=== PATIENT | female | born 1930 | race Caucasian/White ===

== ENCOUNTER 2017-11-09 19:56 | Inpatient (IN) | payer MEDICARE ==
[~2017-11-09] VITALS: Ht 152.4 cm; Wt 54.1 kg
[~2017-11-09 19:56] MED LIST: ACET325T21 PO; AMOX1TAB10 PO; ASPI-630 PO; BETA10TA2; BUTA-14; CHOL10003 PO; CYCL1DRO OU; DIPH1TAB; DONE10TA14; DONE10TA7; FAMO-63 PO; FENT1PAT15 TP; FOLI1TAB16; GABA-586; HYDR453.3 TP; LACT1CAP24 PO; LEVO88CA PO; LISI2.5T; LORA0.5T96 PO; MAG30ORA2 PO; MAGN2400 PO; MECL25TA3; MELA3TAB2 PO; METH57CR7 TP; NAPR500T4; NYST1000 PO; OXYC-323 PO; PANT40TA3 PO; QUET25TA5 PO; RANI150T2; RISP0.2519 PO; SERT50TA PO; SIMV40TA3 PO; TOBR3.5O2 OU; TRAM50TA; ZOLP10TA
[2017-11-09] MEDS ORDERED: IV NORMAL SALINE 1,000ML 1,000 ML IV SCH ×2 (20:30→22:30)
[2017-11-09] MEDS ORDERED: ONDANSETRON PF 4 MG/2 ML VIAL. IV ONE (20:45)
[2017-11-09 20:58] LABS: BASO % 0 % (0-3); EOS # 0.2 x10^3/uL (0.0-0.7); EOS % 1 % (0-3); HEMATOCRIT 44.5 % (36.0-47.0); HEMOGLOBIN 14.9 g/dL (12.0-15.5); LYMPH # 0.3 x10^3/uL (1.0-4.8); LYMPH % 2 % (24-48); MEAN CORPUSCULAR HEMOGLOBIN 31 pg (25-35); MEAN CORPUSCULAR HGB CONC 34 g/dL (31-37); MEAN CORPUSCULAR VOLUME 93 fL (79-100); MONO # 0.4 x10^3/uL (0.0-1.1); MONO % 2 % (0-9); NEUT # 15.9 x10^3uL (1.8-7.7); NEUT % 95 % (31-73); PLATELET COUNT 286 x10^3/uL (140-400); RED BLOOD COUNT 4.77 x10^6/uL (3.50-5.40); RED CELL DISTRIBUTION WIDTH 14.2 % (11.5-14.5); WHITE BLOOD COUNT 16.8 x10^3/uL (4.0-11.0)
[2017-11-09 21:07] LABS: ALBUMIN/GLOBULIN RATIO 0.9 (1.0-1.7); CALCIUM 9.8 mg/dL (8.5-10.1); CREATININE 1.1 mg/dL (0.6-1.0); GFR 46.9; POTASSIUM 4.2 mmol/L (3.5-5.1); TOTAL BILIRUBIN 0.3 mg/dL (0.2-1.0); TOTAL PROTEIN 8.4 g/dL (6.4-8.2)
[2017-11-09] MEDS ORDERED: cefTRIAXone SODIUM 1 GM VIAL IV ONE (21:24)
[2017-11-09] MEDS ORDERED: AZITHROMYCIN 500 MG VIAL. IV ONE (21:24)
[2017-11-09] MEDS ORDERED: IV NORMAL SALINE 250ML 250 ML ONE (21:24)
[2017-11-09] MEDS ORDERED: IV NORMAL SALINE 50ML 50 ML ONE (21:24)
[2017-11-09] MEDS ORDERED: AZITHROMYCIN 500 MG in IV NORMAL SALINE 250ML 250 ML IV ONE (21:30)
[2017-11-09 22:01] LABS: % BASOS 1 % (0-3); % LYMPHS 1 % (24-48); % MONOS 3 % (0-10); % SEGS 95 % (35-66)
[2017-11-09 22:03] LABS: OVALOCYTES OCC; PLT ESTIMATE ADEQUATE (ADEQUATE); POLYCHROMASIA SLIGHT; SCHISTOCYTES OCC; STOMATOCYTES OCC
--- NOTE | 2017-11-09 22:14 | PHYS DOC ---
General Chief Complaint: NAUSEA/VOMITING/DIARRHEA Stated Complaint: NAUSEA Time Seen by MD: 20:12 Source: patient, EMS, halfway records Exam Limitations: clinical condition Problems: History of Present Illness Initial Comments Patient is an 87-year-old female sent to the emergency department from [facility] via EMS for vomiting and diarrhea. EMS reports that halfway staff reported the patient has had several days of vomiting and diarrhea and there was now concern for the possibility of C. difficile. The patient has also had a progressively worsening cough with green sputum no measured fevers. Patient has history of CVA with hemiplegia sequela as well as dementia and although pleasant and cooperative is a poor historian. DNR order is sent with the patient. The patient is not actively vomiting on arrival. ED vitals: 97.8, 121, 22, 143/76, 99% room air Patient has dementia and is unable to sign. Timing/Duration: getting worse, changing over time, other Severity: severe Modifying Factors: worse with movement, improves with rest Associated Symptoms: cough, nausea/vomiting Allergies: Coded Allergies: albuterol (Verified Allergy, Intermediate, 11/09/17) alprazolam (Verified Allergy, Intermediate, 11/09/17) doxycycline (Verified Allergy, Intermediate, 11/09/17) Past Medical History Medical History: heart disease, hypertension, other (Alzheimer's dementia, anxiety disorder, generalized weakness, hypothyroidism, difficulty walking, and pulse disorder, hyperlipidemia, GERD, CVA with hemiplegia, anemia, edema, constipation, depression, coronary artery disease, left hip fracture, pseudo- bulbar affect, chronic leg pain, unspecified psychosis, polyneuropathy, chronic left foot ulcers) Surgical History: angioplasty, coronary bypass surgery, other (ORIF left hip) Social History Smoker: non-smoker Alcohol: none Drugs: none Review of Systems All Other Systems: Reviewed and Negative (history of dementia see history of present illness) Physical Exam General Appearance: no apparent distress (dry cough on arrival which persisted approximately 30 minutes and then appeared to resolve for the most part), thin Ear, Nose, Throat: hearing grossly normal, normal ENT inspection, normal pharynx Neck: non-tender, supple Respiratory: no respiratory distress, decreased breath sounds, other (course breath sounds bilaterally) Cardiovascular: normal peripheral pulses, tachycardia Gastrointestinal: normal bowel sounds, soft (mildly distended, generalized tenderness without rebound guarding or mass negative Long negative McBurney) Extremities: non-tender, normal inspection Neurologic/Psychiatric: alert, other (disoriented hemiplegia noted) Skin: pallor (with poor skin turgor) Orders, Labs, Meds EKG: Sinus tachycardia 125 bpm, repolarization abnormality with T contour abnormality no ST segment elevation interpreted by me. Acute abdominal series: Right basilar infiltrate noted, postoperative changes, nonspecific nonobstructive bowel gas pattern, moderate to severe degenerative changes at the lumbar spine interpreted by me. PATIENT: MIRANDA MESSINA ACCOUNT: [id number] : 1930 LOCATION: ER AGE: 87 SEX: F EXAM STATUS: REG ER ORD. PHYSICIAN: ADRIANNA GR DO REASON: cough, tachycardia PROCEDURE: CT ANGIOGRAPHY CHEST CTA scan of the Chest with Contrast (Pulmonary Embolism protocol) 11/09/2017 Clinical History: Shortness of breath. Cough. Tachycardia. Technique: After the intravenous administration of 60 cc of Omnipaque 300, contiguous, 0.625 mm axial sections were obtained through the chest. 2 mm axial and 3D MIP coronal and sagittal reconstructed images were obtained. One or more of the following individualized dose reduction techniques were utilized for this study: 1. Automated exposure control. 2. Adjustment of the mA and/or kV according to patient size. 3. Use of iterative reconstruction technique. Findings: No filling defect is seen within the major branches of either pulmonary artery. There is no CT evidence of pulmonary embolism. The heart is mildly enlarged. The patient is post CABG procedure. Moderate to severe atheromatous/atherosclerotic plaque formation is seen involving the thoracic aorta and its branches. The thoracic aorta is tortuous but tapers normally. Dependent atelectasis and or infiltrate is seen involving both lower lobes, right greater than left. Areas of scarring are seen scattered throughout both lungs. Patchy areas of groundglass attenuation are seen throughout both lungs. No pneumothorax or pleural effusion is seen. Small partially calcified gallstones are seen within the dependent portions of the gallbladder. Impression: There is no CT evidence of pulmonary embolism. Electronically signed by: Darius Louis MD (11/10/2017 12:09 AM) [facility] DICTATED AND SIGNED BY: DARIUS LOUIS MD DATE: 11/10/17 0004 CC: MICHAEL HURD MD; ADRIANNA GR DO ~ Impressions: Sepsis Bibasilar pneumonia Vomiting and diarrhea Hypovolemia Elevated d-dimer Inguinal and left lower extremity skin breakdown Cholelithiasis without cholecystitis 0035: I discussed the patient with javascript front end developer hospitalist Dr. Hurd who is already familiar with the patient. He accepts inpatient ICU admission to continue Rocephin and Zithromax as well as other treatments and evaluate lower extremities for DVT. ED course: 87-year-old female sent to the emergency department from [facility] for productive cough, nausea and vomiting. Patient found to be tachycardic and remained so despite 2 L normal saline IV boluses, no vomiting or diarrhea noted during the patient's extended time in the emergency department. Chest x-ray and CTA chest indicative of pneumonia, Rocephin and Zithromax given intravenously as well as Flagyl for suspected C. difficile colitis. Patient has not yet produced a stool specimen, blood cultures are also pending. Lactic acid improved with hydration from 2.1-1.[address] Hurd accepts inpatient ICU admission to continue current treatments and for inpatient lower extremity Dopplers and wound care consultations as well as Lovenox DVT prophylaxis. Departure Disposition: ADMITTED INPATIENT Condition: STABLE Additional Instructions: Inpatient ICU admission Dr. Hurd is accepting ADRIANNA GR DO Nov 09, 2017 22:13
[2017-11-09 22:48] LABS: AMORPHOUS SEDIMENT,UR PRESENT /HPF; BACTERIA,URINE 0 /HPF (0-FEW); BILIRUBIN,URINE NEG (NEG); CLARITY,URINE CLEAR; COLOR,URINE YELLOW; GLUCOSE,URINE NEG (NEG); NITRITE,URINE NEG (NEG); RBC,URINE RARE /HPF (0-2); SQUAMOUS EPITHELIAL CELL,UR OCC /LPF; UROBILINOGEN,URINE 0.2 mg/dL (0.2 mg/dL); WBC,URINE OCC /HPF (0-4)
[2017-11-09 22:49] LABS: HYALINE CASTS, URINE OCC /HPF
--- NOTE | 2017-11-09 22:59 | EKG ---
[address] [address] Test Date: 2017-11-09 Test Time: 21:54:03 Pat Name: MIRANDA MESSINA Department: Room: Gender: F Behavioral Health Worker: PATRICIA : 1930 Requested By: ADRIANNA GR Order Number: [id number] Reading MD: Gustabo Frye MD Measurements Intervals [place] Rate: 125 P: 33 MO: 164 QRS: 17 QRSD: 72 T: 25 QT: 290 QTc: 420 Interpretive Statements SINUS TACHYCARDIA RVH WITH REPOLARIZATION ABNORMALITY NON-SPECIFIC ST/T CHANGES Electronically Signed On 11-17-2017 12:03:49 C UNIX DEVELOPER by Gustabo Frye MD
[2017-11-09] MEDS ORDERED: CONTRAST GIVEN MC PRN (23:00)
[2017-11-09] MEDS ORDERED: IOHEXOL 300 MG/ML 75 ML VIAL. IV ONE (23:30)
[2017-11-10] VITALS (15 sets, daily range): BP systolic 85–136; BP diastolic 44–74
[2017-11-10] MEDS: IV NORMAL SALINE 1,000ML 1,000 ML IV SCH ×4 (00:01→20:19)
--- NOTE | 2017-11-10 00:12 | RAD ---
CTA scan of the Chest with Contrast (Pulmonary Embolism protocol) 11/09/2017 Clinical History: Shortness of breath. Cough. Tachycardia. Technique: After the intravenous administration of 60 cc of Omnipaque 300, contiguous, 0.625 mm axial sections were obtained through the chest. 2 mm axial and 3D MIP coronal and sagittal reconstructed images were obtained. One or more of the following individualized dose reduction techniques were utilized for this study: 1. Automated exposure control. 2. Adjustment of the mA and/or kV according to patient size. 3. Use of iterative reconstruction technique. Findings: No filling defect is seen within the major branches of either pulmonary artery. There is no CT evidence of pulmonary embolism. The heart is mildly enlarged. The patient is post CABG procedure. Moderate to severe atheromatous/atherosclerotic plaque formation is seen involving the thoracic aorta and its branches. The thoracic aorta is tortuous but tapers normally. Dependent atelectasis and or infiltrate is seen involving both lower lobes, right greater than left. Areas of scarring are seen scattered throughout both lungs. Patchy areas of groundglass attenuation are seen throughout both lungs. No pneumothorax or pleural effusion is seen. Small partially calcified gallstones are seen within the dependent portions of the gallbladder. Impression: There is no CT evidence of pulmonary embolism. Electronically signed by: aDrius Louis MD (11/10/2017 12:09 AM) [place] [id number]
[2017-11-10] MEDS ORDERED: ACETAMINOPHEN 325 MG TABLET PO PRN (00:45)
[2017-11-10] MEDS ORDERED: ONDANSETRON PF 4 MG/2 ML VIAL. IV PRN (00:45)
[2017-11-10] MEDS ORDERED: ACETAMINOPHEN 325 MG SUPP.RECT ONE (01:37)
[2017-11-10] MEDS: FAMOTIDINE 20 MG/2 ML VIAL IVP SCH (08:41)
[2017-11-10] MEDS: ENOXAPARIN 30 MG/0.3 ML DISP.SYRIN. SQ SCH (08:41)
--- NOTE | 2017-11-10 09:18 | RAD ---
Indication: Nausea and vomiting. C. difficile. Tachycardia. Technique: Abdominal series with AP chest radiograph contains 3 images. No comparison is available. Findings: There is minimal opacity in the left lung base. Density in the right midlung field may be extrinsic to the patient. Heart is not enlarged. There is atheromatous disease in the thoracic aorta. Median sternotomy wires are noted. The second most superior wire is fractured, similar to prior. There is no free air. There is no dilated small bowel loop or air-fluid level. There are degenerative changes in the spine. There is atheromatous disease in the abdominal aorta. There are postsurgical changes in the left hip. There is increased density projecting over the sacrum on the left. This could be superimposed iliac artery vascular calcification. Chronic sacral insufficiency fracture also is a consideration. Impression: 1. Nonobstructive bowel gas pattern. 2. Left basilar opacity could represent atelectasis, scarring, or less likely developing infiltrate.
[2017-11-10] MEDS: LEVOTHYROXINE 88 MCG TABLET PO SCH (11:00)
[2017-11-10] MEDS: SERTRALINE 50 MG TABLET. PO SCH (11:30)
[2017-11-10] MEDS: fentaNYL 25MCG/HR 1 PATCH PATCH TD SCH (11:30)
--- NOTE | 2017-11-10 15:10 | HP ---
ADMIT DATE: 11/10/2017 REASON FOR ADMISSION: Nausea, vomiting, diarrhea admission. HISTORY OF PRESENT ILLNESS: This is an 87-year-old female who came from [facility] via EMS for vomiting and diarrhea. According to the records, the [facility] staff reported, the patient has had several days of vomiting and diarrhea. They were concerned about the possibility of C. difficile, also has been coughing with green sputum. No report of fever. PAST MEDICAL HISTORY: CVA, apparent wound on her coccyx, dementia, coronary artery disease, hypertension, weakness, hypothyroidism, reflux, hyperlipidemia, vascular dementia, [place] in the past, actually chronic diarrhea is listed as a diagnosis in 04/23 history and physical. Right middle cerebral artery infarct, chronic kidney disease, multiple admissions for cellulitis of the left leg and [facility] for dementia with behavior disturbance. She had an admission on 11/29/2016, with an infection of her left foot. FAMILY HISTORY: Positive for CVA, coronary artery disease and cancer. ALLERGIES: None. MEDICATIONS: Reviewed. REVIEW OF SYSTEMS: The patient just feels weak, but cannot really verbalize what was bothering her. SOCIAL HISTORY: Resides at [facility]. Smoking history is not known. PAST SURGICAL HISTORY: Left total knee arthroplasty, coronary artery bypass, coronary angioplasty with stent deployment. ALLERGIES: ALBUTEROL, ALPRAZOLAM and DOXYCYCLINE. OBJECTIVE: VITAL SIGNS: Blood pressure is 85/57 with a MAP of 66, pulse 95, respirations 18, pulse ox 95% on room air. GENERAL: Color is pale. She is sleepy. HEENT: Her tongue is dry. NECK: Supple. There is no JVD. LUNGS: Clear. CARDIOVASCULAR: Regular rhythm and rate with a 2-3/6 systolic murmur. ABDOMEN: Soft. Bladder seems is a little bit full, nontender. EXTREMITIES: Left leg, she has a chronic dermatitis on that foot and what appears to be a wound on the left heel also a large coccyx wound, probably on stage 1. LABORATORY DATA: White blood cell count 16.8%, neutrophils 95%. Chemistry: Her lactic acid initially was 2.1, now it is 1.8. Troponin slight bump from 0.017 to 0.043. BUN 25, creatinine of 1.1. Albumin is 4. D-dimer 1.20. Urinalysis is clear. Chest CT shows enlarged heart, moderate to severe atherosclerosis, bilateral lower infiltrates or atelectasis, right greater than left. No PE. ASSESSMENT: 1. Hypotension, severe. 2. Severe dehydration. 3. Acute kidney injury. 4. Frail elderly. 5. Leukocytosis. 6. Bilateral lower lobe pneumonia. 7. Elevated D-dimer, negative pulmonary embolism. 8. Alzheimer's dementia. 9. History of hypertension, but is hypotensive. 10. Hypothyroidism. 11. Low vitamin D. 12. Left heel wound. 13. Buttock wound. PLAN: Wound consult. MATTHEW MARQUEZ DO DR: ENOCH/lana JOB#: [id number] / [id number]
[2017-11-10] MEDS: ACETAMINOPHEN 325 MG TABLET PO SCH ×2 (15:16→20:20)
--- NOTE | 2017-11-10 16:11 | RAD ---
Bilateral lower extremity venous ultrasound, 11/10/2017: History: Elevated d-dimer Duplex evaluation of the deep veins in the lower extremities was performed including grayscale, color-flow and spectral Doppler analysis. The femoral and popliteal veins demonstrate normal compressibility and normal responses to distal augmentation maneuvers. Color imaging of those vessels shows no evidence of intraluminal clot. The visualized deep veins in both calves are patent. IMPRESSION: There is no sonographic evidence of deep vein thrombosis in either lower extremity.
[2017-11-10] MEDS: MELATONIN 3 MG TABLET PO PRN (20:19)
[2017-11-10] MEDS: cycloSPORINE 0.05% OPTH 1 DROP DROPERETTE OU SCH (20:19)
[2017-11-10] MEDS: LACTOBACILLUS RHAMNOSUS GG 1 CAPSULE. PO SCH (20:19)
[2017-11-10] MEDS: AZITHROMYCIN 500 MG in IV NORMAL SALINE 250ML 250 ML IV SCH (22:22)
[2017-11-11] VITALS (13 sets, daily range): BP systolic 98–148; BP diastolic 55–93
[2017-11-11 01:15] LABS: FECAL OB PT NEGATIVE (NEG)
[2017-11-11] MEDS: LEVOTHYROXINE 88 MCG TABLET PO SCH (05:06)
[2017-11-11 06:14] LABS: BASO % 0 % (0-3); EOS # 0.2 x10^3/uL (0.0-0.7); EOS % 3 % (0-3); HEMATOCRIT 32.6 % (36.0-47.0); LYMPH # 1.7 x10^3/uL (1.0-4.8); LYMPH % 23 % (24-48); MEAN CORPUSCULAR HEMOGLOBIN 32 pg (25-35); MEAN CORPUSCULAR HGB CONC 34 g/dL (31-37); MEAN CORPUSCULAR VOLUME 94 fL (79-100); MONO # 0.8 x10^3/uL (0.0-1.1); MONO % 10 % (0-9); NEUT # 4.9 x10^3uL (1.8-7.7); NEUT % 64 % (31-73); PLATELET COUNT 192 x10^3/uL (140-400); RED BLOOD COUNT 3.46 x10^6/uL (3.50-5.40); RED CELL DISTRIBUTION WIDTH 14.5 % (11.5-14.5); WHITE BLOOD COUNT 7.6 x10^3/uL (4.0-11.0)
[2017-11-11 06:31] LABS: ALBUMIN 2.4 g/dL (3.4-5.0); ALBUMIN/GLOBULIN RATIO 0.7 (1.0-1.7); CALCIUM 7.8 mg/dL (8.5-10.1); CREATININE 0.9 mg/dL (0.6-1.0); GFR 59.1; MAGNESIUM 1.6 mg/dL (1.8-2.4); POTASSIUM 3.4 mmol/L (3.5-5.1); TOTAL BILIRUBIN 0.1 mg/dL (0.2-1.0); TOTAL PROTEIN 5.8 g/dL (6.4-8.2)
[2017-11-11] MEDS ORDERED: MAGNESIUM SULFATE 2GM 50 ML IV ONE (08:00)
[2017-11-11] MEDS ORDERED: POTASSIUM CHLORIDE 20 MEQ TABLET.ER. PO ONE (08:15)
[2017-11-11] MEDS: ASPIRIN 81 MG TAB.CHEW PO SCH (08:26)
[2017-11-11] MEDS: LACTOBACILLUS RHAMNOSUS GG 1 CAPSULE. PO SCH ×2 (08:26→20:10)
[2017-11-11] MEDS: cycloSPORINE 0.05% OPTH 1 DROP DROPERETTE OU SCH ×2 (08:26→20:10)
[2017-11-11] MEDS: CHOLECALCIFEROL (VITAMIN D3) 1,000 UNIT TABLET PO SCH (08:26)
[2017-11-11] MEDS: ENOXAPARIN 30 MG/0.3 ML DISP.SYRIN. SQ SCH (08:26)
[2017-11-11] MEDS: ACETAMINOPHEN 325 MG TABLET PO SCH ×3 (08:26→20:10)
[2017-11-11] MEDS: FAMOTIDINE 20 MG/2 ML VIAL IVP SCH (08:27)
[2017-11-11] MEDS: SERTRALINE 50 MG TABLET. PO SCH (08:27)
[2017-11-11] MEDS: HYDROCORTISONE 2.5% TOPICAL CREAM 30GM TUBE. TP SCH (08:28)
[2017-11-11] MEDS: MELATONIN 3 MG TABLET PO PRN (20:10)
[2017-11-11] MEDS: AZITHROMYCIN 500 MG in IV NORMAL SALINE 250ML 250 ML IV SCH (20:10)
[2017-11-12] VITALS (10 sets, daily range): BP systolic 106–172; BP diastolic 57–87
--- NOTE | 2017-11-12 03:54 | PN ---
DATE: 11/11/2017 CURRENT PROBLEMS: 1. Hypotension, which is improving. 2. Severe dehydration, improved. 3. Acute kidney injury, improved. 4. Frail elderly. 5. Bilateral lower lobe pneumonia with sepsis. 6. Hypomagnesemia. 7. Hypokalemia. 8. MRSA positive. 9. Neurocognitive impairment. 10. Hypothyroidism. 11. Vitamin D deficiency. 12. Left heel wound. 13. Buttock wound. NARRATIVE: The patient has been seen by the wound nurse and treated. She is somewhat agitated this morning and having trouble taking her medications. She just basically does not want to take them. She appears to be having a little bit of issue with choking and will need a speech eval. OBJECTIVE: VITAL SIGNS: Blood pressure 113/64, pulse 76, respirations 18, pulse ox 94% on room air. GENERAL: Her color is pale. LUNGS: With crackles in the bases. NECK: Supple. CARDIOVASCULAR: Regular rhythm and rate. ABDOMEN: Soft, nontender. EXTREMITIES: Left discoloration of the feet. Left foot has some petechiae, ecchymosis, which is not opened. Heel was covered. Buttock dermatitis not looked at today. Blood culture, no growth after 1 day. PLAN: Continue current plans, PT and OT. MATTHEW MARQUEZ DO DR: ENOCH/lana JOB#: [id number] / [id number]
[2017-11-12] MEDS: LEVOTHYROXINE 88 MCG TABLET PO SCH (06:01)
[2017-11-12 08:23] LABS: HEMATOCRIT 37.9 % (36.0-47.0); HEMOGLOBIN 12.9 g/dL (12.0-15.5); RED BLOOD COUNT 4.08 x10^6/uL (3.50-5.40); RED CELL DISTRIBUTION WIDTH 14.2 % (11.5-14.5); WHITE BLOOD COUNT 10.9 x10^3/uL (4.0-11.0)
[2017-11-12 08:47] LABS: ALBUMIN 3.1 g/dL (3.4-5.0); ALBUMIN/GLOBULIN RATIO 0.8 (1.0-1.7); CALCIUM 8.8 mg/dL (8.5-10.1); CREATININE 0.8 mg/dL (0.6-1.0); GFR 67.7; MAGNESIUM 1.8 mg/dL (1.8-2.4); POTASSIUM 3.3 mmol/L (3.5-5.1); TOTAL BILIRUBIN 0.2 mg/dL (0.2-1.0); TOTAL PROTEIN 7.2 g/dL (6.4-8.2)
[2017-11-12] MEDS: FAMOTIDINE 20 MG/2 ML VIAL IVP SCH (08:57)
[2017-11-12] MEDS: HYDROCORTISONE 2.5% TOPICAL CREAM 30GM TUBE. TP SCH (08:58)
[2017-11-12] MEDS: cycloSPORINE 0.05% OPTH 1 DROP DROPERETTE OU SCH ×2 (08:58→21:23)
[2017-11-12] MEDS: ENOXAPARIN 30 MG/0.3 ML DISP.SYRIN. SQ SCH (08:58)
[2017-11-12] MEDS: LACTOBACILLUS RHAMNOSUS GG 1 CAPSULE. PO SCH ×3 (08:59→21:22)
[2017-11-12] MEDS: CHOLECALCIFEROL (VITAMIN D3) 1,000 UNIT TABLET PO SCH (08:59)
[2017-11-12] MEDS: SERTRALINE 50 MG TABLET. PO SCH (08:59)
[2017-11-12] MEDS: ASPIRIN 81 MG TAB.CHEW PO SCH (08:59)
[2017-11-12] MEDS: ACETAMINOPHEN 325 MG TABLET PO SCH ×4 (08:59→21:22)
[2017-11-12] MEDS ORDERED: IPRATRPIUM/ALBUTEROL 0.5/2.5MG 3 ML NEBU. ONE (11:20)
[2017-11-12] MEDS ORDERED: IPRATROPIUM BROMIDE 0.5 MG/2.5 ML NEBU. ONE (11:23)
[2017-11-12] MEDS: IPRATROPIUM BROMIDE 0.5 MG/2.5 ML NEBU. NEB SCH ×2 (12:00→21:38)
[2017-11-12] MEDS: AZITHROMYCIN 500 MG in IV NORMAL SALINE 250ML 250 ML IV SCH (21:23)
--- NOTE | 2017-11-13 02:54 | PN ---
DATE: PROBLEMS: 1. Hypotension, resolved. 2. Dehydration, resolved. 3. Acute kidney injury, resolved. 4. Frail elderly, resolved. 5. Bilateral lower lobe pneumonia with sepsis. 6. Hypomagnesemia. 7. Hypokalemia. 8. Methicillin-resistant Staphylococcus aureus positive. 9. Neurocognitive impairment. 10. Hypothyroidism. 11. Vitamin D deficiency. 12. Left heel wound. 13. Buttock dermatitis. SUBJECTIVE: The patient is doing much better. She will need one more night to go back skilled. She did not sleep very much last night, but was "very busy." She has a little risk according to Speech of aspiration. OBJECTIVE: VITAL SIGNS: Blood pressure 106/68, pulse 88, respirations 16, pulse ox 95% on room air. Color is pale. She is alert, mildly agitated. LUNGS: With a few crackles. CARDIOVASCULAR: Regular rhythm and rate, slightly irregular. ABDOMEN: Soft. Bladder was a little bit full. EXTREMITIES: Without edema. PLAN: Breathing treatment x 1. Switch to p.o. antibiotics. Plan for discharge. MATTHEW MARQUEZ DO DR: ENOCH/lana JOB#: [id number] / [id number]
[2017-11-13] MEDS: LEVOTHYROXINE 88 MCG TABLET PO SCH (05:42)
[2017-11-13 06:00] VITALS: BP 154/75
[2017-11-13 06:05] LABS: BASO # 0.1 x10^3/uL (0.0-0.2); BASO % 1 % (0-3); EOS # 0.4 x10^3/uL (0.0-0.7); EOS % 4 % (0-3); HEMATOCRIT 31.7 % (36.0-47.0); HEMOGLOBIN 10.8 g/dL (12.0-15.5); LYMPH # 2.8 x10^3/uL (1.0-4.8); LYMPH % 30 % (24-48); MEAN CORPUSCULAR HEMOGLOBIN 31 pg (25-35); MEAN CORPUSCULAR HGB CONC 34 g/dL (31-37); MEAN CORPUSCULAR VOLUME 92 fL (79-100); MONO # 0.8 x10^3/uL (0.0-1.1); MONO % 9 % (0-9); NEUT # 5.3 x10^3uL (1.8-7.7); NEUT % 56 % (31-73); PLATELET COUNT 231 x10^3/uL (140-400); RED BLOOD COUNT 3.46 x10^6/uL (3.50-5.40); RED CELL DISTRIBUTION WIDTH 14.4 % (11.5-14.5); WHITE BLOOD COUNT 9.4 x10^3/uL (4.0-11.0)
[2017-11-13 06:15] LABS: ALBUMIN 2.6 g/dL (3.4-5.0); ALBUMIN/GLOBULIN RATIO 0.8 (1.0-1.7); CALCIUM 8.4 mg/dL (8.5-10.1); CREATININE 0.9 mg/dL (0.6-1.0); GFR 59.1; MAGNESIUM 1.9 mg/dL (1.8-2.4); POTASSIUM 3.3 mmol/L (3.5-5.1); TOTAL BILIRUBIN 0.2 mg/dL (0.2-1.0)
[2017-11-13] MEDS ORDERED: POTASSIUM CHLORIDE 10 MEQ TABLET.ER. PO SCH (08:00)
[2017-11-13] MEDS ORDERED: CEFPODOXIME PROXETIL 100 MG TABLET PO SCH (09:00)
[2017-11-13] MEDS: cycloSPORINE 0.05% OPTH 1 DROP DROPERETTE OU SCH (09:00)
[2017-11-13] MEDS ORDERED: FAMOTIDINE 20 MG TABLET PO SCH (09:00)
[2017-11-13 09:13] VITALS: BP 127/65
[2017-11-13] MEDS: HYDROCORTISONE 2.5% TOPICAL CREAM 30GM TUBE. TP SCH (09:34)
[2017-11-13] MEDS: ENOXAPARIN 30 MG/0.3 ML DISP.SYRIN. SQ SCH (09:35)
[2017-11-13] MEDS: fentaNYL 25MCG/HR 1 PATCH PATCH TD SCH (09:35)
[2017-11-13] MEDS: CHOLECALCIFEROL (VITAMIN D3) 1,000 UNIT TABLET PO SCH (09:36)
[2017-11-13] MEDS: ASPIRIN 81 MG TAB.CHEW PO SCH (09:37)
[2017-11-13] MEDS: LACTOBACILLUS RHAMNOSUS GG 1 CAPSULE. PO SCH (09:37)
[2017-11-13] MEDS: ACETAMINOPHEN 325 MG TABLET PO SCH (09:39)
[2017-11-13] MEDS: SERTRALINE 50 MG TABLET. PO SCH (09:41)
[2017-11-13] MEDS: IPRATROPIUM BROMIDE 0.5 MG/2.5 ML NEBU. NEB SCH (09:48)
[2017-11-13] MEDS ORDERED: AZITHROMYCIN 250 MG TABLET. PO SCH (21:00)
--- NOTE | 2017-11-13 22:03 | DS ---
DATE OF DISCHARGE: 11/13/2017 DISCHARGE DIAGNOSES: 1. Hypotension, resolved. 2. Dehydration, resolved. 3. Acute kidney injury, resolved. 4. Frail elderly. 5. Bilateral lower lobe pneumonia with sepsis. 6. Hypomagnesemia has been corrected. 7. Hypokalemia being treated. 8. Methicillin-resistant Staph positive in the nares. 9. Neurocognitive impairment. 10. Hypothyroidism. 11. Vitamin D deficiency. 12. Left heel wound. 13. Buttock dermatitis. 14. Severe protein calorie malnutrition, received Boost. HOSPITAL COURSE: This is an 87-year-old female who was admitted from [facility] for vomiting and diarrhea. Her C. diff was negative. She did not vomit while she was here. She was dehydrated and received IV fluids and was treated for pneumonia. She became much more alert after being hydrated and treating for pneumonia. She was combative at times. Did have some good results with a very low dose of Zyprexa. She was ready for discharge on 11/13/2017. OBJECTIVE: VITAL SIGNS: Blood pressure 127/65, pulse 87, temperature 97.9, respirations 16, pulse ox 96% on room air. DISCHARGE INSTRUCTIONS: She was discharged back to [place], will follow up with Dr. Hurd and placed on p.o. antibiotics and medications were reconciled. MATTHEW MARQUEZ DO DR: ENOCH/lana JOB#: [id number] / [id number]
== END 2017-11-13 11:19 | disposition home or self-care (01) | DRG 871 ==
LOC: ER 22:39 → ICU 11-10 00:35
PROVIDERS: ADMIT Internal Medicine; ATTEND Internal Medicine
DX: A41.9 Sepsis, unspecified organism (principal); E43 Unspecified severe protein-calorie malnutrition; N17.9 Acute kidney failure, unspecified; I95.9 Hypotension, unspecified; J18.1 Lobar pneumonia, unspecified organism; E83.42 Hypomagnesemia; I69.359 Hemiplegia and hemiparesis following cerebral infarction affecting unspecified side; G62.9 Polyneuropathy, unspecified; F01.51 Vascular dementia, unspecified severity, with behavioral disturbance; F02.81 Dementia in other diseases classified elsewhere, unspecified severity, with behavioral disturbance; G30.9 Alzheimer's disease, unspecified; E86.0 Dehydration; E03.9 Hypothyroidism, unspecified; E78.5 Hyperlipidemia, unspecified; E87.6 Hypokalemia; I12.9 Hypertensive chronic kidney disease with stage 1 through stage 4 chronic kidney disease, or unspecified chronic kidney disease; I25.10 Atherosclerotic heart disease of native coronary artery without angina pectoris; I25.2 Old myocardial infarction; L97.529 Non-pressure chronic ulcer of other part of left foot with unspecified severity; K80.20 Calculus of gallbladder without cholecystitis without obstruction; K21.9 Gastro-esophageal reflux disease without esophagitis; L30.9 Dermatitis, unspecified; N18.9 Chronic kidney disease, unspecified; Z66 Do not resuscitate; Z96.652 Presence of left artificial knee joint; F32.9 Major depressive disorder, single episode, unspecified; F41.9 Anxiety disorder, unspecified; G89.29 Other chronic pain; R54 Age-related physical debility; R19.7 Diarrhea, unspecified; B95.62 Methicillin resistant Staphylococcus aureus infection as the cause of diseases classified elsewhere; Z82.3 Family history of stroke; Z82.49 Family history of ischemic heart disease and other diseases of the circulatory system; Z95.1 Presence of aortocoronary bypass graft; Z95.5 Presence of coronary angioplasty implant and graft; Z87.81 Personal history of (healed) traumatic fracture; Z68.23 Body mass index [BMI] 23.0-23.9, adult; Z88.8 Allergy status to other drugs, medicaments and biological substances
CPT/HCPCS: 36415; 71275; 74022; 80053; 81001; 82274; 82550; 83605; 83690; 83735; 84484; 85007; 85025; 85027; 85379; 87040; 87045; 87324; 87641; 93005; 93970; 94640; 96365; 96367; 96375; J0456; J0696; J1650; J2405; J3475; J3490; J7050; J7644; Q9967; S0028; 92610; 99285-25; J7030